=== PATIENT | female | born 1995 | race Caucasian/White ===

== ENCOUNTER 2020-01-21 21:40 | Emergency (ER) | payer OTHER ==
[2020-01-21] MEDS: Magnesium Citrate Solution 296 ML Bottle PO ONE (22:01)
[2020-01-21] MEDS: Bisacodyl 10 MG Supp RECTAL ONE (22:01)
--- NOTE | 2020-01-21 22:08 | EDM.PDOC ---
ED [facility] GENERAL MEDICAL PROBLEM - General Stated Complaint: GENERAL Time Seen by Provider: 01/21/20 21:40 Source of Information: Reports: Patient History Limitations: Reports: No Limitations - History of Present Illness INITIAL COMMENTS - FREE TEXT/NARRATIVE: Patient comes into the emergency department with concerns of constipation and a bulge by her rectum. Patient was unsure what the bulge was however it was formed this evening and she called her mom who stated she needed to be seen in the emergency department immediately for evaluation. Patient states after she tried to have a bowel movement this evening she noticed that she had this bulge on the outside of her rectum. She denies any pain or discomfort however she became very worried after feeling the bulge. Also denies any bleeding, abdominal pain, any tearing sensations, any fever, nausea, headache, bleeding, or lower extremity edema. S Patient also denies any urinary incontinence frequency burning hesitancy or hemorrhoids. She also denies any rectal male formalities. States that she has had issues with constipation in the past and she has had increasing constipation over the course the last week. She has not tried any [id number] modalities to help with her constipation. Onset: Today, Sudden Severity: Mild Improves with: Reports: None Worsens with: Reports: None Context: Reports: Other Associated Symptoms: Reports: No Other Symptoms ED ROS GENERAL - Review of Systems Review Of Systems: Comprehensive ROS is negative, except as noted in HPI. Constitutional: Reports: No Symptoms HEENT: Reports: No Symptoms Respiratory: Reports: No Symptoms Cardiovascular: Reports: No Symptoms Endocrine: Reports: No Symptoms GI/Abdominal: Reports: No Symptoms : Reports: No Symptoms Musculoskeletal: Reports: No Symptoms Skin: Reports: No Symptoms ED EXAM, GENERAL - Physical Exam Exam: See Below Exam Limited By: No Limitations General Appearance: Alert, WD/WN, No Apparent Distress Head: Atraumatic, Normocephalic Neck: Normal Inspection, Supple, Non-Tender, Full Range of Motion Respiratory/Chest: No Respiratory Distress, Lungs Clear, Chest Non-Tender Cardiovascular: Normal Peripheral Pulses, Regular Rate, Rhythm, No Edema (Female) Exam: Normal External Exam. No: Uterine Tenderness, Vaginal Bleeding, Vaginal Discharge, Vaginal Tears Rectal (Female) Exam: Normal Rectal Tone, Hemorrhoids (3 noted- non thrombosed, non tender, no bleeding ). No: Decreased Rectal Tone, Perirectal Abscess, Rectal Fissure, Tenderness Back Exam: Normal Inspection, Full Range of Motion Extremities: Normal Inspection, Normal Range of Motion, Non-Tender Neurological: Alert, Oriented, Normal Gait Psychiatric: Normal Affect, Normal Mood Skin Exam: Warm, Dry Course - Orders/Labs/Meds Meds: Medications Discontinued Medications Generic Name Dose Route Start Last Admin Trade Name Reji PRN Reason Stop Dose Admin Bisacodyl 10 mg 01/21/20 21:57 Dulcolax RECTAL 01/21/20 21:58 ONETIME ONE Magnesium Citrate 296 ml 01/21/20 21:57 Citrate Of Magnesia PO 01/21/20 21:58 ONETIME ONE Departure - Departure Time of Disposition: 22:05 Disposition: Home, Self-Care 01 Clinical Impression: Hemorrhoid Qualifiers: Hemorrhoid type: first degree Qualified Code(s): K64.0 - First degree hemorrhoids Constipation Qualifiers: Constipation type: unspecified constipation type Qualified Code(s): K59.00 - Constipation, unspecified - Discharge Information *PRESCRIPTION DRUG MONITORING PROGRAM REVIEWED*: Not Applicable *COPY OF PRESCRIPTION DRUG MONITORING REPORT IN PATIENT GIAN: Not Applicable Instructions: Constipation, Adult, High-Fiber Diet, Hemorrhoids, [id number], Magnesium Citrate oral solution, Bisacodyl suppositories Referrals: Joanne James PA-C [Primary Care Provider] - Additional Instructions: 1. rest 2. increase your water intake 3. Continue all at home medications 4. Activity and diet as tolerated 5. Can take over the counter Tylenol or ibuprophen for any pain or discomfort 6. Follow up with PCP if symptoms continue, return, or progress 7. Call with any questions or concerns 8. Can use the suppository tonight to help with defecation and lower GI motility. It is advised tomorrow morning to take the mag citrate with a half a bottle and increase to a full bottle if no results within the first 24 hours. 9. Can use warm baths or ice to help with the hemorrhoids if pain occurs. Currently they do not need any surgical intervention 10. Education provided regarding constipation, increase fiber diet, mag citrate , suppositories, and hemorrhoids - Assessment/Plan Assessment:: 1. Constipation 2. Hemorrhoids Plan: 1. Rectal exam preformed. non thrombosed hemorrhoids noted 2. Patient did not want an enema in the ER. she would like to take items home if possible. 3. Citrate and a suppository was sent with the patient and instructions were provided 4. Patient and nursing staff was updated regarding the plan of care 5. Education provided the patient regarding activity, diet, rest, over-the- counter medication modalities, and follow-up care was provided 6. Patient and family are agreeable to the above plan of care 7. All questions and concerns were addressed with the patient and family prior to discharge
== END 2020-01-21 22:12 | disposition home or self-care (01) ==
LOC: VM.ED 21:40
DX: K59.00 Constipation, unspecified (principal); K64.0 First degree hemorrhoids
CPT/HCPCS: 99283; A9270

== ENCOUNTER 2021-06-15 20:28 | Emergency (ER) | payer MEDICAID ==
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
== END 2021-06-15 21:20 ==
LOC: VM.ED 20:28
DX: O9A.32 Physical abuse complicating childbirth (principal); S10.93XA Contusion of unspecified part of neck, initial encounter; Y04.8XXA Assault by other bodily force, initial encounter; Z3A.23 23 weeks gestation of pregnancy; Z87.891 Personal history of nicotine dependence; Z77.22 Contact with and (suspected) exposure to environmental tobacco smoke (acute) (chronic)
CPT/HCPCS: 99283; 99284-25